=== PATIENT | female | born 1975 | race American Indian/Alaskan Native ===

== ENCOUNTER 2021-08-24 14:04 | Emergency (ER) | payer MEDICAID ==
--- NOTE | 2021-08-24 14:21 | Emergency Department Report ---
Chief Complaint: Arrhythmia/Palpitations Stated Complaint: shortness of breath/chest pain Time Seen by Provider: 08/24/21 14:15 - HPI History of Present Illness: Patient came in by ambulance with palpitations. Last night and today she felt her heart was racing and skipping beats. She felt as though her blood pressure was elevated. She felt winded. She did not have chest pain or discomfort. - Exam Physical Exam: Well-developed, well-nourished female in no distress. Heart was regular. Lungs are clear. MSE screening note: Focused history and physical exam performed. Due to findings the following was ordered: Labs, IV fluids, EKG were ordered Another provider will follow-up and arrange disposition and do a complete history and physical. ED Disposition for MSE Condition: Stable
[2021-08-24] MEDS ORDERED: LACTATED RINGERS 1,000 ML IV ONE (15:01)
--- NOTE | 2021-08-24 15:02 | Emergency Department Report ---
ED General Adult HPI - General Chief complaint: Arrhythmia/Palpitations Stated complaint: shortness of breath/chest pain Time Seen by Provider: 08/24/21 14:15 ED Review of Systems ROS: Stated complaint: shortness of breath/chest pain Other details as noted in HPI Critical care attestation.: If time is entered above; I have spent that time in minutes in the direct care of this critically ill patient, excluding procedure time. ED Disposition Condition: Stable
== END 2021-08-26 19:36 | disposition left against medical advice (07) ==
LOC: EDUNIT# → ED 14:04
DX: R00.2 Palpitations (principal); R06.02 Shortness of breath; R07.9 Chest pain, unspecified
CPT/HCPCS: 36415; 99282

== ENCOUNTER 2021-08-24 14:16 | Emergency (ER) | payer MEDICAID ==
--- NOTE | 2021-08-24 15:41 | XRay Report ---
CHEST 1 VIEW 08/24/2021 2:32 PM INDICATION / CLINICAL INFORMATION: Chest Pain. COMPARISON: None available. FINDINGS: SUPPORT DEVICES: None. HEART / MEDIASTINUM: The heart size and pulmonary vasculature are normal. The aorta is normal in essie edwardo. LUNGS / PLEURA: No significant pulmonary or pleural abnormality. No pneumothorax. ADDITIONAL FINDINGS: No significant additional findings. IMPRESSION: No acute findings. Signer Name: Calvin Oneill MD Signed: 08/24/2021 3:35 PM Workstation Name: [id number]
[2021-08-24] MEDS ORDERED: LACTATED RINGERS 1,000 ML IV ONE (15:42)
--- NOTE | 2021-08-24 15:43 | Emergency Department Report ---
ED General Adult HPI - General Chief complaint: Chest Pain Stated complaint: AILEEN/CP PUI?: No Time Seen by Provider: 08/24/21 15:41 Source: patient, EMS ( EMS documentation not available at time of chart dictation ), RN notes reviewed Mode of arrival: Stretcher Limitations: No Limitations - History of Present Illness Initial comments: The patient was evaluated in the emergency department for symptoms described in the history of present illness. He/she was evaluated in the context of the global COVID-19 pandemic, which necessitated consideration that the patient might be at risk for infection with the virus that causes COVID-19. Institutional protocols and algorithms that pertain to the evaluation of patients at risk for COVID-19 are in a state of rapid change based on information released by regulatory bodies including the CDC and federal and state organizations. These policies and algorithms were followed during the patient's care in the emergency department. Please note that these policies, procedures and recommendations changed on a rapid basis. During the history and physical examination I am chaperoned byTATIANNA CHAPA This patient is a 45-year-old female. She reports that she is not . The patient reports that she was in her usual state of health yesterday, when s he consumed some alcohol, and recreational marijuana edible, which is unusual for her. Afterwards, she describes central chest pain which is constant since 9:00 PM yesterday that moves to her back. She denies vomiting or diaphoresis. She feels lightheaded and dizzy. She has not lost consciousness or passed out. She denies travel, surgery, immobilization, DVT/PE risk factors. She presents to the ER for reassurance. -: days(s) Location: chest Radiation: back Severity scale (0 -10): 9 Consistency: constant Improves with: none Worsens with: none - Related Data Previous Rx's Medication Instructions Recorded Last Taken Type labetaloL [Labetalol 200mg TAB] 200 mg PO BID #60 tablet 05/05/16 Unknown Rx Allergies Allergy/AdvReac Type Severity Reaction Status Date / Time No Known Allergies Allergy Unverified 08/24/21 15:31 ED Review of Systems ROS: Stated complaint: AILEEN/CP Other details as noted in HPI Constitutional: denies: fever Eyes: denies: vision change ENT: denies: epistaxis Respiratory: denies: cough Cardiovascular: chest pain Gastrointestinal: denies: abdominal pain, nausea, vomiting Musculoskeletal: back pain Neurological: weakness Psychiatric: anxiety ED Past Medical Hx - Surgical History Additional Surgical History: hernia repair - Social History Smoking Status: Former Smoker Substance Use Type: None - Medications Home Medications: Home Medications Medication Instructions Recorded Confirmed Last Taken Type labetaloL [Labetalol 200mg TAB] 200 mg PO BID #60 tablet 05/05/16 Unknown Rx ED Physical Exam - General Limitations: No Limitations General appearance: alert, anxious, obese - Head Head exam: Present: atraumatic, normocephalic - Eye Eye exam: Present: normal appearance, EOMI. Absent: nystagmus - ENT ENT exam: Present: normal exam, normal orophraynx, mucous membranes moist, normal external ear exam - Neck Neck exam: Present: normal inspection, full ROM. Absent: tenderness, meningismus - Respiratory Respiratory exam: Present: normal lung sounds bilaterally, chest wall tenderness. Absent: respiratory distress, wheezes, rales, rhonchi, stridor - Cardiovascular Cardiovascular Exam: Present: normal rhythm, tachycardia, normal heart sounds. Absent: bradycardia, irregular rhythm, systolic murmur, diastolic murmur, rubs, gallop - GI/Abdominal GI/Abdominal exam: Present: soft. Absent: distended, tenderness, guarding, rebound, rigid, pulsatile mass - Extremities Exam Extremities exam: Present: normal inspection, full ROM, other (2+ pulses noted in the bilateral upper and lower extremities. There is no palpable cord. negative Homans sign. Muscular compartments are soft. The pelvis is stable.). Absent: pedal edema, calf tenderness - Back Exam Back exam: Present: normal inspection, full ROM. Absent: tenderness, CVA tenderness (R), CVA tenderness (L), paraspinal tenderness, vertebral tenderness - Neurological Exam Neurological exam: Present: alert, oriented X3, normal gait, other (No facial droop. Tongue midline. Extraocular movements intact bilaterally. Facial sensation intact to light touch in V1, V2, V3 distribution bilaterally. 5 and a 5 strength in 4 extremities. Sensation intact to light touch in 4 extremities.). Absent: motor sensory deficit - Psychiatric Psychiatric exam: Present: anxious - Skin Skin exam: Present: warm, dry, intact, normal color. Absent: rash ED Course Vital Signs 08/24/21 08/24/21 08/24/21 14:48 15:01 15:15 Temperature 98.9 F Pulse Rate 107 H Respiratory 16 Rate Blood Pressure Blood Pressure 122/87 [Right] O2 Sat by Pulse 100 99 99 Oximetry 08/24/21 08/24/21 08/24/21 15:31 15:45 16:01 Temperature Pulse Rate Respiratory Rate Blood Pressure 123/83 123/83 119/89 Blood Pressure [Right] O2 Sat by Pulse 100 99 99 Oximetry 08/24/21 08/24/21 08/24/21 16:15 16:31 16:45 Temperature Pulse Rate Respiratory Rate Blood Pressure 119/89 120/85 120/85 Blood Pressure [Right] O2 Sat by Pulse 99 100 100 Oximetry 08/24/21 08/24/21 08/24/21 17:01 17:15 17:31 Temperature Pulse Rate Respiratory Rate Blood Pressure 125/89 125/89 121/86 Blood Pressure [Right] O2 Sat by Pulse 99 100 100 Oximetry 08/24/21 08/24/21 08/24/21 17:47 18:01 18:15 Temperature Pulse Rate Respiratory Rate Blood Pressure 121/86 122/85 122/85 Blood Pressure [Right] O2 Sat by Pulse 100 100 100 Oximetry - Reevaluation(s) Reevaluation #1: 08/24/21 19:07 Differential diagnosis, including but not limited to: Cannabis induced palpitations, anxiety, thyroid derangement, electrolyte derangement, dehydration, coronary artery disease, anemia Assessment and plan: 45-year-old female who who was initially tachycardic, with subsequent resolution of tachycardia tachypneic or hypoxic, who denies DVT and pulmonary embolism risk factors, who is low risk by Wells criteria for pulmonary embolism, EKG unremarkable times 1 troponin negative x 1, in the context of almost 20 hours of chest pain symptoms present for since yesterday evening. As per the [employer] clinical policy, myocardial infarction may be ruled out with 1 set of troponin/cardiac enzymes. Patient at low risk for major adverse cardiac event as per heart score. Patient has equal pulses in the upper and lower extremities, no pulsatile abdominal mass, and an unremarkable x-ray of the chest, therefore, aortic disease is very unlikely. Patient at low risk for major adverse cardiac event as per heart score. Suspect that patient's symptoms are likely secondary to combination of marijuana and alcohol consumption. The patient is awake, alert, oriented of sound mind, and clinically sober and ambulates with a steady gait. Her tachycardia has resolved. Her objective diagnostic testing is unremarkable. She does not meet criteria for 1013 hold or involuntary confinement. Counseled to minimize and avoid consumption of alcohol and marijuana/edibles. She may follow-up with an outpatient primary care doctor or mechanical maintenance technician. Return precautions reviewed. ED Medical Decision Making - Lab Data Result diagrams: 08/24/21 15:03 08/24/21 15:03 Vital Signs 08/24/21 08/24/21 08/24/21 14:48 15:01 15:15 Temperature 98.9 F Pulse Rate 107 H Respiratory 16 Rate Blood Pressure Blood Pressure 122/87 [Right] O2 Sat by Pulse 100 99 99 Oximetry 08/24/21 08/24/21 08/24/21 15:31 15:45 16:01 Temperature Pulse Rate Respiratory Rate Blood Pressure 123/83 123/83 119/89 Blood Pressure [Right] O2 Sat by Pulse 100 99 99 Oximetry 08/24/21 08/24/21 08/24/21 16:15 16:31 16:45 Temperature Pulse Rate Respiratory Rate Blood Pressure 119/89 120/85 120/85 Blood Pressure [Right] O2 Sat by Pulse 99 100 100 Oximetry 08/24/21 08/24/21 08/24/21 17:01 17:15 17:31 Temperature Pulse Rate Respiratory Rate Blood Pressure 125/89 125/89 121/86 Blood Pressure [Right] O2 Sat by Pulse 99 100 100 Oximetry 08/24/21 08/24/21 08/24/21 17:47 18:01 18:15 Temperature Pulse Rate Respiratory Rate Blood Pressure 121/86 122/85 122/85 Blood Pressure [Right] O2 Sat by Pulse 100 100 100 Oximetry Lab Results 08/24/21 08/24/21 08/24/21 Range/Units 15:03 15:03 15:03 WBC 8.0 (4.5-11.0) K/mm3 RBC 4.43 (3.65-5.03) M/mm3 Hgb 11.7 (10.1-14.3) gm/dl Hct 37.1 (30.3-42.9) % MCV 84 (79-97) fl MCH 26 L (28-32) pg MCHC 32 (30-34) % RDW 16.9 H (13.2-15.2) % Plt Count 251 (140-440) K/mm3 Lymph % (Auto) 18.7 (13.4-35.0) % [place] % (Auto) 5.8 (0.0-7.3) % Eos % (Auto) 0.1 (0.0-4.3) % Baso % (Auto) 0.2 (0.0-1.8) % Lymph # (Auto) 1.5 (1.2-5.4) K/mm3 [place] # (Auto) 0.5 (0.0-0.8) K/mm3 Eos # (Auto) 0.0 (0.0-0.4) K/mm3 Baso # (Auto) 0.0 (0.0-0.1) K/mm3 Seg Neutrophils % 75.2 H (40.0-70.0) % Seg Neutrophils # 6.0 (1.8-7.7) K/mm3 PT 13.3 (12.2-14.9) Sec. INR 0.91 (0.87-1.13) Sodium 140 (137-145) mmol/L Potassium 3.5 L (3.6-5.0) mmol/L Chloride 105.2 (98-107) mmol/L Carbon Dioxide 19 L (22-30) mmol/L Anion Gap 19 mmol/L BUN 7 (7-17) mg/dL Creatinine 0.7 (0.6-1.2) mg/dL Estimated GFR > 60 ml/min BUN/Creatinine Ratio 10 % Glucose 87 (65-100) mg/dL Calcium 8.8 (8.4-10.2) mg/dL Magnesium 2.00 (1.7-2.3) mg/dL Total Bilirubin 0.30 (0.1-1.2) mg/dL AST 17 (5-40) units/L ALT 18 (7-56) units/L Alkaline Phosphatase 90 (35-129) units/L Total Creatine Kinase 65 (30-135) units/L Troponin T < 0.010 (0.00-0.029) ng/mL Total Protein 7.8 (6.3-8.2) g/dL Albumin 4.5 (3.9-5) g/dL Albumin/Globulin Ratio 1.4 % TSH (0.270-4.200) mlU/mL HCG, Quant (0-4) mIU/mL Salicylates (2.8-20.0) mg/dL Acetaminophen (10.0-30.0) ug/mL 08/24/21 08/24/21 08/24/21 Range/Units 15:03 15:03 15:03 WBC (4.5-11.0) K/mm3 RBC (3.65-5.03) M/mm3 Hgb (10.1-14.3) gm/dl Hct (30.3-42.9) % MCV (79-97) fl MCH (28-32) pg MCHC (30-34) % RDW (13.2-15.2) % Plt Count (140-440) K/mm3 Lymph % (Auto) (13.4-35.0) % [place] % (Auto) (0.0-7.3) % Eos % (Auto) (0.0-4.3) % Baso % (Auto) (0.0-1.8) % Lymph # (Auto) (1.2-5.4) K/mm3 [place] # (Auto) (0.0-0.8) K/mm3 Eos # (Auto) (0.0-0.4) K/mm3 Baso # (Auto) (0.0-0.1) K/mm3 Seg Neutrophils % (40.0-70.0) % Seg Neutrophils # (1.8-7.7) K/mm3 PT (12.2-14.9) Sec. INR (0.87-1.13) Sodium (137-145) mmol/L Potassium (3.6-5.0) mmol/L Chloride (98-107) mmol/L Carbon Dioxide (22-30) mmol/L Anion Gap mmol/L BUN (7-17) mg/dL Creatinine (0.6-1.2) mg/dL Estimated GFR ml/min BUN/Creatinine Ratio % Glucose (65-100) mg/dL Calcium (8.4-10.2) mg/dL Magnesium (1.7-2.3) mg/dL Total Bilirubin (0.1-1.2) mg/dL AST (5-40) units/L ALT (7-56) units/L Alkaline Phosphatase (35-129) units/L Total Creatine Kinase (30-135) units/L Troponin T (0.00-0.029) ng/mL Total Protein (6.3-8.2) g/dL Albumin (3.9-5) g/dL Albumin/Globulin Ratio % TSH 1.070 (0.270-4.200) mlU/mL HCG, Quant < 2 (0-4) mIU/mL Salicylates 1.4 L (2.8-20.0) mg/dL Acetaminophen (10.0-30.0) ug/mL 08/24/21 Range/Units 15:03 WBC (4.5-11.0) K/mm3 RBC (3.65-5.03) M/mm3 Hgb (10.1-14.3) gm/dl Hct (30.3-42.9) % MCV (79-97) fl MCH (28-32) pg MCHC (30-34) % RDW (13.2-15.2) % Plt Count (140-440) K/mm3 Lymph % (Auto) (13.4-35.0) % [place] % (Auto) (0.0-7.3) % Eos % (Auto) (0.0-4.3) % Baso % (Auto) (0.0-1.8) % Lymph # (Auto) (1.2-5.4) K/mm3 [place] # (Auto) (0.0-0.8) K/mm3 Eos # (Auto) (0.0-0.4) K/mm3 Baso # (Auto) (0.0-0.1) K/mm3 Seg Neutrophils % (40.0-70.0) % Seg Neutrophils # (1.8-7.7) K/mm3 PT (12.2-14.9) Sec. INR (0.87-1.13) Sodium (137-145) mmol/L Potassium (3.6-5.0) mmol/L Chloride (98-107) mmol/L Carbon Dioxide (22-30) mmol/L Anion Gap mmol/L BUN (7-17) mg/dL Creatinine (0.6-1.2) mg/dL Estimated GFR ml/min BUN/Creatinine Ratio % Glucose (65-100) mg/dL Calcium (8.4-10.2) mg/dL Magnesium (1.7-2.3) mg/dL Total Bilirubin (0.1-1.2) mg/dL AST (5-40) units/L ALT (7-56) units/L Alkaline Phosphatase (35-129) units/L Total Creatine Kinase (30-135) units/L Troponin T (0.00-0.029) ng/mL Total Protein (6.3-8.2) g/dL Albumin (3.9-5) g/dL Albumin/Globulin Ratio % TSH (0.270-4.200) mlU/mL HCG, Quant (0-4) mIU/mL Salicylates (2.8-20.0) mg/dL Acetaminophen 5.0 L (10.0-30.0) ug/mL - EKG Data -: EKG Interpreted by [place] EKG shows normal: sinus rhythm Rate: normal - EKG Data 08/24/21 19:01 The EKG is interpreted at 15: 21 Sinus rhythm, tachycardia, 105 bpm. QTc 4 6 1 ms. High left ventricular voltage. GA interval within normal limits. Abnormal EKG. Not a STEMI. - Radiology Data Radiology results: pending, report reviewed, image reviewed CHEST 1 VIEW 08/24/2021 2:32 PM INDICATION / CLINICAL INFORMATION: Chest Pain. COMPARISON: None available. FINDINGS: SUPPORT DEVICES: None. HEART / MEDIASTINUM: The heart size and pulmonary vasculature are normal. The aorta is normal in caliber. LUNGS / PLEURA: No significant pulmonary or pleural abnormality. No pneumothorax. ADDITIONAL FINDINGS: No significant additional findings. IMPRESSION: No acute findings. Signer Name: Calvin Oneill MD Signed: 08/24/2021 2:35 PM Workstation Name: [id number] Critical care attestation.: If time is entered above; I have spent that time in minutes in the direct care of this critically ill patient, excluding procedure time. ED Disposition Clinical Impression: Marijuana use, History of chest pain, Palpitations Disposition: HOME / SELF CARE / HOMELESS Is pt being admited?: No Does the pt Need Aspirin: No Condition: Good Additional Instructions: Recommend that patient not consume marijuana or edibles. Recommend that patient minimize alcohol consumption. Recommend that patient eat a bland diet, and consume plenty of fiber, vegetables and lean protein. The patient is recommended to take aspirin [id number], 81 mg daily, Tylenol [id number] as needed for physical pain, and may take low-dose ibuprofen 400 mg with food, every 6 hours as needed for physical pain. We recommend follow-up with a primary care doctor or mechanical maintenance technician within the next 5 to 7 days. Participate in physical activities as tolerated. Please return to the emergency room right away with new pain, worsened pain, migration of pain, projectile vomiting, change in mental status, confusion, inability tolerate liquid feeds, new, worsened or different symptoms not present on the initial emergency room evaluation Referrals: [facility] [Provider Group] - 3-5 Days [facility] [Provider Group] - 3-5 Days [facility] [Provider Group] - 3-5 Days Forms: Work/School Release Form(ED) Heart Score - HEART Score History: Slightly suspicious EKG: Non-specific Age: < 45 Risk factors: No known risk factors Troponin: < normal limit HEART Score: 1 - EKG Read Time Time EKG Completed: 15:21 EKG Read Time: 15:21 - Critical Actions Critical Actions: 0-3 pts:0.9-1.7%risk of adverse cardiac event.Candidate for discharge
[2021-08-24 16:12] LABS: Basophils % (Auto) 0.2 % (0.0-1.8); Eosinophils % (Auto) 0.1 % (0.0-4.3); Hematocrit 37.1 % (30.3-42.9); Hemoglobin 11.7 gm/dl (10.1-14.3); Lymphocytes # (Auto) 1.5 K/mm3 (1.2-5.4); Lymphocytes % (Auto) 18.7 % (13.4-35.0); Mean Corpuscular HGB Conc 32 % (30-34); Mean Corpuscular Volume 84 fl (79-97); Monocytes # (Auto) 0.5 K/mm3 (0.0-0.8); Monocytes % (Auto) 5.8 % (0.0-7.3); Platelet Count 251 K/mm3 (140-440); Red Blood Count 4.43 M/mm3 (3.65-5.03); Red Cell Distribution Width 16.9 % (13.2-15.2)
[2021-08-24 16:23] LABS: INR 0.91 (0.87-1.13)
[2021-08-24] MEDS ORDERED: PANTOPRAZOLE 40 MG TAB PO ONE (16:36)
[2021-08-24] MEDS ORDERED: SUCRALFATE 1 GM/10 ML ORAL LIQD PO ONE (16:36)
[2021-08-24 17:48] LABS: Alanine Aminotransferase 18 units/L (7-56); Albumin 4.5 g/dL (3.9-5); Blood Urea Nitrogen 7 mg/dL (7-17); Calcium 8.8 mg/dL (8.4-10.2); Hemolysis Index 5
[2021-08-24] MEDS ORDERED: ACETAMINOPHEN 325 MG TAB PO ONE (17:48)
[2021-08-24 17:51] LABS: BUN/Creatinine Ratio 10
[2021-08-24] MEDS ORDERED: KETOROLAC 30 MG/1 ML INJ IV ONE (18:07)
[2021-08-24] MEDS ORDERED: ALPRAZolam 0.5 MG TAB PO ONE (18:09)
[2021-08-24 20:18] VITALS: BP 124/65
--- NOTE | 2021-08-25 09:03 | Electrocardiograph Report ---
[facility] Test Date: 2021-08-24 Test Time: 15:21:43 Pat Name: JUDITH OGDEN Department: Room: Gender: F Computer Technology Teacher: KAROLINA : 1975 Requested By: ED DOC Order Number: [id number] Reading MD: David Davis Measurements Intervals [place] Rate: 105 P: 55 MI: 153 QRS: 26 QRSD: 77 T: 56 QT: 349 QTc: 461 Interpretive Statements Sinus tachycardia Probable left atrial enlargement No previous ECG available for comparison Electronically Signed On 08-25-2021 9:02:40 EST by David Davis
== END 2021-08-24 20:17 | disposition home or self-care (01) ==
LOC: ED 14:16
DX: F12.90 Cannabis use, unspecified, uncomplicated (principal); R07.9 Chest pain, unspecified; Z98.890 Other specified postprocedural states; Z87.891 Personal history of nicotine dependence
CPT/HCPCS: 36415; 71045; 80053; 82550; 83735; 84443; 84484; 84702; 85025; 85610; 93005; 93010; 96361; 96374; 99284; J1885; J7120; 80320; 99282; G0480